=== PATIENT | female | born 2000 | race Caucasian/White ===

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

== ENCOUNTER 2019-02-12 08:39 | Outpatient (CLI) | payer BC, OTHER ==
--- NOTE | 2019-02-12 21:37 | XRAY Report ---
Reason: LEFT HAND PAIN Procedure Date: 02/12/2019 Accession Number: [id number] / [id number] Procedure: WCP - Hand 3 View LT CPT Code: Addended Final Report FULL RESULT: EXAM: LEFT HAND RADIOGRAPHY EXAM DATE: 02/12/2019 08:39 AM. CLINICAL HISTORY: LEFT HAND PAIN. COMPARISON: None. TECHNIQUE: 3 views. FINDINGS: Bones: Normal. No fractures or bone lesions. Joints: Normal. No subluxations. Soft Tissues: Unremarkable. IMPRESSION: Normal hand radiography. [facility] ADDENDUM: 02/14/19 13:00 Upon further review, there is a subtle nondisplaced fracture of the volar surface of the second middle phalangeal base seen on lateral view. IMPRESSION: Second middle phalangeal volar plate fracture.
== END 2019-02-12 23:59 | disposition home or self-care (01) ==
LOC: DI.WCP 08:39
PROVIDERS: ATTEND Physician Assistant Medical
DX: S62.641A Nondisplaced fracture of proximal phalanx of left index finger, initial encounter for closed fracture (principal)